=== PATIENT | male | born 1950 | race Caucasian/White ===

== ENCOUNTER 2022-10-11 11:23 | Day surgery (SDC) | payer MEDICARE, BC ==
[~2022-10-11 11:23] MED LIST: Lactated Ringers 1,000 ML IV SCH; Lidocaine 1%/Sod Bicarbonate in NS 8.4% 1 ML Syringe IDERM PRN; Midazolam 1 MG/ML 2 ML SDV ONE; Morphine 8 MG, EPINEPHrine 0.3 MG, Cefuroxime 750 MG, Ketorolac 30 MG, Sodium Chloride ... PRN; Propofol 200 MG/20 ML SDV ONE; Sodium Chloride 0.9% 10 ML Syringe FLUSH PRN; Sodium Chloride 0.9% 10 ML Syringe FLUSH SCH
[2022-10-11] MEDS ORDERED: VANCOmycin 1.5 GM/300 ML 1.5 GM in Premix Bag 1 BAG IV SCH (12:00)
[2022-10-11] MEDS ORDERED: Tranexamic Acid 1,000 MG/10 ML Vial ONE (12:17)
[2022-10-11] MEDS ORDERED: Vancomycin 1 GM SDV ONE (12:17)
[2022-10-11] MEDS ORDERED: Propofol 200 MG/20 ML SDV ONE (12:39)
[2022-10-11] MEDS ORDERED: Ondansetron 4 MG/2 ML SDV ONE (12:59)
[2022-10-11] MEDS ORDERED: Phenylephrine HCl In 0.9% NaCl 1 MG/10 ML Vial ONE (13:33)
[2022-10-11] MEDS ORDERED: ceFAZolin 2 GM Vial ONE (13:48)
[2022-10-11] MEDS ORDERED: fentaNYL 100 MCG/2 ML SDV IVPUSH PRN (13:55)
[2022-10-11] MEDS ORDERED: Ondansetron 4 MG/2 ML SDV IVPUSH PRN (13:55)
[2022-10-11] MEDS ORDERED: HYDROmorphone 0.5 MG/0.5 ML Syringe IVPUSH PRN (13:55)
[2022-10-11] MEDS ORDERED: Dexmedetomidine 200 MCG/2 ML SDV ONE (14:09)
[2022-10-11] MEDS ORDERED: Ketorolac 15 MG/ML SDV ONE (14:10)
[2022-10-11] MEDS ORDERED: fentaNYL 100 MCG/2 ML SDV ONE (14:26)
[2022-10-11] MEDS ORDERED: Lactated Ringers 1,000 ML ONE (14:29)
[2022-10-11] MEDS ORDERED: Ropivacaine 0.5% 5 MG/ML 30 ML SDV ONE (14:41)
[2022-10-11] MEDS ORDERED: EPINEPHrine 1 MG/ML SDV ONE (14:41)
[2022-10-11] MEDS ORDERED: traMADol 50 MG Tab PO SCH (14:43)
[2022-10-11 16:37] VITALS: BP 123/61; PULSE 68
== END 2022-10-11 17:15 | disposition home or self-care (01) ==
LOC: JD.SDS 11:23
PROVIDERS: ATTEND Orthopaedic Surgery
DX: M17.11 Unilateral primary osteoarthritis, right knee (principal); G47.33 Obstructive sleep apnea (adult) (pediatric); I25.110 Atherosclerotic heart disease of native coronary artery with unstable angina pectoris; I10 Essential (primary) hypertension; E78.2 Mixed hyperlipidemia; K21.9 Gastro-esophageal reflux disease without esophagitis; Z90.49 Acquired absence of other specified parts of digestive tract; Z98.890 Other specified postprocedural states; Z87.891 Personal history of nicotine dependence; Z88.5 Allergy status to narcotic agent; Z88.8 Allergy status to other drugs, medicaments and biological substances; Z91.041 Radiographic dye allergy status; Z79.82 Long term (current) use of aspirin
CPT/HCPCS: 0055T; 27447; 73560; 97116; 97161; A9270; C1713; C1776; J0171; J0690; J0697; J1885; J2250; J2270; J2405; J2704; J2795; J3370; J7120; 01402; 64450; 76942; 99100; J3010

== ENCOUNTER 2022-10-16 17:12 | Emergency (ER) | payer MEDICARE, BC ==
[2022-10-16] MEDS ORDERED: Sodium Chloride 0.9% 1,000 ML IV ONE (17:58)
[2022-10-16 21:14] VITALS: BP 146/73; PULSE 85
== END 2022-10-16 20:30 | disposition home or self-care (01) ==
LOC: JD.ED 17:12
DX: R42 Dizziness and giddiness (principal); I25.10 Atherosclerotic heart disease of native coronary artery without angina pectoris; E78.00 Pure hypercholesterolemia, unspecified; I10 Essential (primary) hypertension; Z88.5 Allergy status to narcotic agent; Z91.041 Radiographic dye allergy status; Z79.899 Other long term (current) drug therapy; Z79.82 Long term (current) use of aspirin; Z90.49 Acquired absence of other specified parts of digestive tract
CPT/HCPCS: 36415; 80053; 84484; 85025; 86140; 93005; 96360; 99283; A9270; J7030